=== PATIENT | female | born 1990 | race Hispanic/Latino ===

== ENCOUNTER 2017-11-07 16:50 | Observation (INO) | payer MEDICAID | END 2017-11-07 17:47 | disposition home or self-care (01) | LOC: LDH 16:50 | PROVIDERS: ADMIT Obstetrics & Gynecology; ATTEND Obstetrics & Gynecology | DX: Z34.93 Encounter for supervision of normal pregnancy, unspecified, third trimester (principal); Z3A.38 38 weeks gestation of pregnancy | CPT/HCPCS: 59025; G0378 ×2 ==

== ENCOUNTER 2017-11-11 12:26 | Inpatient (IN) | payer MEDICAID ==
[~2017-11-11] VITALS: Ht 147.3 cm; Wt 64.0 kg
[2017-11-11] MEDS ORDERED: DINOPROSTONE 10 MG VAGINAL SUPP VG SCH (13:00)
[2017-11-11] MEDS: OXYTOCIN-LR 20 UNITS/1000 ML 1,000 ML IV SCH (13:00)
[2017-11-11] MEDS ORDERED: DINOPROSTONE 10 MG VAGINAL SUPP ONE (13:21)
[2017-11-11 13:38] LABS: HEMATOCRIT 34.8 % (36-48); MEAN CORPUSCULAR HEMOGLOBIN 31.3 pg (27.0-33.0); MEAN CORPUSCULAR HGB CONC 34.8 g/dL (32.0-36.0); MEAN CORPUSCULAR VOLUME 89.8 fL (79-99); NUCLEATED RED BLOOD CELLS 0.1 % (0.0-0.19); PLATELET COUNT (AUTO) 253 K/uL (130-400); RED BLOOD CELL COUNT(AUTO) 3.88 MIL/uL (4.00-5.50); RED CELL DISTRIBUTION WIDTH 13.4 % (11.0-15.5); WHITE BLOOD COUNT (AUTO) 11.2 K/uL (4.8-10.8)
[2017-11-11 13:45] LABS: APPEARANCE,URINE Clear (CLEAR); BILIRUBIN,URINE Negative (NEGATIVE); COLOR,URINE Yellow (YELLOW); GLUCOSE, URINE (UA) Negative (NEGATIVE); KETONES,URINE Negative (NEGATIVE); LEUKOCYTE ESTERASE ,URINE Moderate (NEGATIVE); NITRATE,URINE Negative (NEGATIVE); OCCULT BLOOD,URINE Negative (NEGATIVE); PH,URINE 6.5 (5.0-8.0); PROTEIN,URINE Negative (NEGATIVE)
[2017-11-11 14:09] LABS: BACTERIA,URINE Rare /HPF (None Seen); RBC,URINE None Seen /HPF (0-1)
[2017-11-11 19:45] VITALS: BP 120/78
[2017-11-11] MEDS: LACTATED RINGERS 1000ML 1,000 ML IV PRN (20:00)
[2017-11-11] MEDS: PROMETHAZINE HCL 25 MG/ML 1ML AMPULE IM PRN (20:44)
[2017-11-11] MEDS: MEPERIDINE-PF 50 MG/ML SYG IM PRN (20:44)
[2017-11-12] VITALS (9 sets, daily range): BP systolic 97–121; BP diastolic 49–74
[2017-11-12 02:19] LABS: AMPHET/METH SCREEN,URINE NEGATIVE (NEGATIVE); BARBITURATE SCREEN, URINE NEGATIVE (NEGATIVE); BENZODIAZEPINES SCREEN,URINE NEGATIVE (NEGATIVE); CANNABINOID SCREEN,URINE NEGATIVE (NEGATIVE); COCAINE SCREEN,URINE NEGATIVE (NEGATIVE); OPIATE SCREEN,URINE NEGATIVE (NEGATIVE); PHENCYCLIDINE SCREEN,URINE NEGATIVE (NEGATIVE)
[2017-11-12] MEDS ORDERED: LACTATED RINGERS 1000ML 1,000 ML IV ONE (02:40)
[2017-11-12] MEDS ORDERED: OXYTOCIN 10 USP UNITS/ML ONE ×2 (02:40→09:24)
[2017-11-12] MEDS: LACTATED RINGERS 1000ML 1,000 ML IV PRN (02:43)
[2017-11-12] MEDS: OXYTOCIN 10 USP UNITS/ML 20 UNIT in LACTATED RINGERS 1000ML 1,000 ML IV SCH ×2 (03:04→04:46)
[2017-11-12] MEDS ORDERED: MEPERIDINE-PF 50 MG/ML SYG IVP PRN (04:30)
[2017-11-12] MEDS ORDERED: PROMETHAZINE HCL 25 MG/ML 1ML AMPULE IM PRN (04:30)
[2017-11-12] MEDS: PROMETHAZINE HCL 25 MG/ML 1ML AMPULE IM PRN (04:46)
[2017-11-12] MEDS: MEPERIDINE-PF 50 MG/ML SYG IM PRN (04:46)
[2017-11-12] MEDS ORDERED: LIDOCAINE HCL 1% 20 ML VIAL ONE (06:57)
[2017-11-12 08:20] LABS: HEPATITIS Bs ANTIGEN SCREEN P Negative (Negative)
[2017-11-12] MEDS ORDERED: MEASLES/MUMPS/RUBELLA VACCINE, LIVE 0.5 ML/VIAL SQ PRN (08:30)
[2017-11-12] MEDS ORDERED: DIPH,PERTUSS(ACELL),TET VAC/PF 0.5 ML VIAL IM PRN (08:30)
[2017-11-12] MEDS ORDERED: BENZOCAINE/LANOLIN/ALOE VERA 60 ML AEROSOL TP PRN (08:30)
[2017-11-12] MEDS ORDERED: LANOLIN 30GM OINTMENT TP PRN (08:30)
[2017-11-12] MEDS ORDERED: ACETAMINOPHEN 325 MG TAB PO PRN (08:30)
[2017-11-12] MEDS ORDERED: WITCH HAZEL 1 PAD TP PRN (08:30)
[2017-11-12] MEDS ORDERED: AZIT250T9 PO (08:58)
[2017-11-12] MEDS: OXYTOCIN-LR 20 UNITS/1000 ML 1,000 ML IV SCH (09:34)
[2017-11-12] MEDS: DOCUSATE SODIUM 100 MG CAP PO SCH ×2 (09:35→20:57)
[2017-11-12] MEDS: IBUPROFEN 600 MG TABLET PO PRN ×2 (09:36→20:57)
[2017-11-13 03:23] VITALS: BP 97/52
[2017-11-13] MEDS: IBUPROFEN 600 MG TABLET PO PRN ×3 (03:23→16:58)
[2017-11-13 05:42] LABS: HEMATOCRIT 26.7 % (36-48); MEAN CORPUSCULAR HGB CONC 34.7 g/dL (32.0-36.0); MEAN CORPUSCULAR VOLUME 89.1 fL (79-99); PLATELET COUNT (AUTO) 207 K/uL (130-400); RED CELL DISTRIBUTION WIDTH 13.3 % (11.0-15.5); WHITE BLOOD COUNT (AUTO) 15.4 K/uL (4.8-10.8)
[2017-11-13 07:40] VITALS: BP 102/61
[2017-11-13] MEDS: DOCUSATE SODIUM 100 MG CAP PO SCH (09:14)
[2017-11-13 11:11] VITALS: BP 102/52
[2017-11-13] MEDS ORDERED: IBUP-2070 PO (11:55)
[2017-11-13] MEDS ORDERED: FERS325 PO (11:57)
[2017-11-13 15:27] VITALS: BP 96/55
== END 2017-11-13 17:25 | disposition home or self-care (01) | DRG 560 ==
LOC: LDH 12:26 → WSH 11-12 08:35
PROVIDERS: ADMIT Obstetrics & Gynecology; ATTEND Obstetrics & Gynecology
PROC: 10E0XZZ Delivery of Products of Conception, External Approach (ICD-10-PCS; principal; 2017-11-11)
PROC: 0W8NXZZ Division of Female Perineum, External Approach (ICD-10-PCS; 2017-11-11)
PROC: 3E0234Z Introduction of Serum, Toxoid and Vaccine into Muscle, Percutaneous Approach (ICD-10-PCS; 2017-11-11)
PROC: 3E0134Z Introduction of Serum, Toxoid and Vaccine into Subcutaneous Tissue, Percutaneous Approach (ICD-10-PCS; 2017-11-11)
DX: O99.324 Drug use complicating childbirth (principal); F12.90 Cannabis use, unspecified, uncomplicated; Z23 Encounter for immunization; Z37.0 Single live birth; Z3A.38 38 weeks gestation of pregnancy
CPT/HCPCS: 36415; 80305; 81001; 85027; 86592; 86850; 86900; 86901; 87340; 90715; J2175; J2550; J2590; J7120